=== PATIENT | female | born 2000 | race Two or more races ===

== ENCOUNTER 2022-11-15 17:48 | Emergency (ER) | payer MEDICAID, OTHER ==
[~2022-11-15] VITALS: Ht 152.4 cm; Wt 63.5 kg
[2022-11-15 17:57] VITALS: BP 114/71; TEMP 98
[2022-11-15] MEDS ORDERED: IBUPROFEN 600 MG TABLET PO ONE (18:30)
[2022-11-15] MEDS ORDERED: IBUPROFEN 600 MG TABLET ONE (18:52)
[2022-11-15] MEDS ORDERED: IBUP-1955 PO (19:48)
[2022-11-15] MEDS ORDERED: DICL1KIT14 TP (19:48)
[2022-11-15 19:55] VITALS: O2SAT 100
== END 2022-11-15 19:55 | disposition home or self-care (01) ==
LOC: ER 17:52
DX: M25.531 Pain in right wrist (principal); M79.641 Pain in right hand; M25.511 Pain in right shoulder; M79.631 Pain in right forearm; V49.9XXA Car occupant (driver) (passenger) injured in unspecified traffic accident, initial encounter; Y93.89 Activity, other specified; Y92.89 Other specified places as the place of occurrence of the external cause; Y99.8 Other external cause status
CPT/HCPCS: 73030-TC; 73090-TC; 73110; 73130-TC